=== PATIENT | female | born 1975 | race Caucasian/White ===

== ENCOUNTER 2018-08-17 15:27 | Emergency (ER) | payer BC ==
[2018-08-17 15:47] LABS: GLUCOSE, URINE (UA) NEGATIVE (NEGATIVE); KETONES,URINE (UA) 40 mg/dL (NEGATIVE); LEUKOCYTE ESTERASE, URINE MODERATE (NEGATIVE); NITRITE,URINE NEGATIVE (NEGATIVE); OCCULT BLOOD,URINE MODERATE (NEGATIVE); PROTEIN,URINE 30 mg/dL (NEGATIVE); UROBILINOGEN,URINE 1 (NORMAL) E.U./dL (NORMAL)
[2018-08-17] MEDS ORDERED: LIDOCAINE 1% 2 ML VIAL MC ONE (15:48)
[2018-08-17] MEDS ORDERED: cefTRIAXone 1 GM VIAL IM STA (15:48)
[2018-08-17 15:50] LABS: BILIRUBIN,URINE SMALL (NEGATIVE); CLARITY,URINE HAZY (CLEAR); ICTOTEST,URINE POSITIVE
--- NOTE | 2018-08-17 15:52 | ED Physician Documentation ---
PD HPI FEMALE - Stated complaint Stated Complaint: LOWER BACK PX,CHILLS,FEVER - History obtained from History obtained from: Patient - History of Present Illness Timing - onset: Other (She had a couple of days of mild dysuria which yesterday developed into more left flank pain fevers chills and generalized discomfort and body aches. She was seen in the office and reportedly had a positive urinalysis, and was started on Keflex. She is had 4 doses now and feels worse.) Review of Systems Ten Systems: 10 systems reviewed and negative Constitutional: reports: Fever, Chills, Myalgias, Fatigue Nose: denies: Rhinorrhea / runny nose, Congestion GI: reports: Nausea. denies: Vomiting, Diarrhea : reports: Dysuria PD PAST MEDICAL HISTORY - Present Medications Home Medications: Ambulatory Orders Medication Instructions Recorded Confirmed Sulfamethoxazole/Trimethoprim 1 each PO BID #20 tablet 08/17/18 [Sulfamethoxazole-Tmp Ds Tablet] PD ED PE NORMAL - Vitals Vital signs reviewed: Yes - General General: Alert and oriented X 3, No acute distress - Abdomen Abdomen: Normal bowel sounds, Soft, Non tender - Back Back: Other (mild L flank TTP) - Derm Derm: Normal color, Warm and dry - Neuro Neuro: Alert and oriented X 3, Normal speech Departure - Departure Disposition: 01 Home, Self Care Clinical Impression: Pyelonephritis Condition: Good Record reviewed to determine appropriate education?: Yes Health Concerns: kidney infection Plan of Treatment: IM rocpehin 1g here, change antibiotics to TMP/SMX (note no fluorquinolones d/t .) We will culture your urine, the results should be done in 48-72 hours. If an antibiotic change is necessary we will call you. Return if worse in the meantime, especially if you develop increasing flank pain, fevers, or cannot keep down the medication. Care Goals: rid infection Assessment: as above Instructions: Pyelonephritis Dc Prescriptions: Sulfamethoxazole/Trimethoprim [Sulfamethoxazole-Tmp Ds Tablet] 1 each PO BID #20 tablet
[2018-08-17 15:54] LABS: BACTERIA,URINE Many /HPF (None Seen); SQUAMOUS EPITHELIAL CELL,UR MANY Squamous (<= Few)
[2018-08-17 16:05] VITALS: BP 112/64
== END 2018-08-17 16:11 | disposition home or self-care (01) ==
LOC: ED 15:27
DX: N12 Tubulo-interstitial nephritis, not specified as acute or chronic (principal)
CPT/HCPCS: 81001; 81003; 87086; 87181; 96372; 99283

== ENCOUNTER 2020-12-19 08:00 | Outpatient (CLI) | payer BC | END 2020-12-19 23:59 | disposition home or self-care (01) | LOC: LAB.S 08:00 | PROVIDERS: ATTEND Emergency Medicine | DX: N76.4 Abscess of vulva (principal) | CPT/HCPCS: 87070; 87077; 87205 ==